=== PATIENT | female | born 1960 | race Caucasian/White ===

== ENCOUNTER 2019-12-05 11:25 | Outpatient (CLI) | payer OTHER, SELFPAY ==
--- NOTE | ~2019-12-05 | MM_ITS ---
EXAMINATION: MM screening aristides RT w lani HISTORY: Screening mammogram TECHNIQUE: Craniocaudal and mediolateral oblique 3-D tomosynthesis images were obtained and synthetic 2-D images were generated. CAD analysis was submitted and interpreted. COMPARISON: 04/14/2018, 12/10/2015 BREAST PARENCHYMAL COMPOSITION: The breast is heterogeneously dense, which may obscure small masses. FINDINGS: An intramammary lymph node is noted in the upper outer quadrant of the breast. There is no evidence of suspicious mass, calcification, or architectural distortion to suggest malignancy in eith er breast. There has been no suspicious interval change. IMPRESSION: 1. No mammographic evidence of malignancy. 2. Recommend routine screening mammography in one year. BI-RADS Category 2: Benign finding(s). Reviewed, dictated and finalized at location A.
== END 2019-12-05 11:26 | disposition home or self-care (01) ==
LOC: ANHIMG 11:29
PROVIDERS: Visit Provider Obstetrics & Gynecology
DX: Z12.31 Encounter for screening mammogram for malignant neoplasm of breast (principal)
CPT/HCPCS: 77063; 77067

== ENCOUNTER 2022-02-21 16:17 | Emergency (ER) | payer OTHER, SELFPAY ==
--- NOTE | ~2022-02-21 | XR_ITS ---
EXAMINATION: XR chest 1V portable 02/21/2022 17:27 INDICATION: Shortness of breath and cough. Previous Covid infection. PROCEDURE: AP portable chest COMPARISON: No prior studies for comparison. FINDINGS: The lungs are clear. The cardiomediastinal silhouette is within normal limits. There are no pleural effusions. There is no pneumothorax suspected. IMPRESSION: 1: NO ACUTE CARDIOPULMONARY DISEASE. Reviewed, dictated and finalized at location A.
[2022-02-21 16:20] VITALS: BP 181/83; PULSE 86; RESP 18; TEMP 36.9; O2SAT 98
--- NOTE | 2022-02-21 16:50 | ED.URI ---
HPI - URI/Sore Throat General Chief Complaint: Upper Respiratory Infection <RAINA Bauer Last Filed: 02/21/22 18:25> Stated Complaint: covid positive <RAINA Bauer Last Filed: 02/21/22 18:25> Time Seen by Provider: 02/21/22 16:30 <RAINA Bauer Last Filed: 02/21/22 18:25> History of Present Illness HPI Narrative: Patient is a 61-year-old female here for evaluation of sore throat, cough, fatigue for the past 2 weeks. Patient tested positive for COVID 2 weeks ago and received antibody infusion about 10 days ago. Her symptoms improved initially, but they returned yesterday. Reports productive cough of clear sputum, very mild shortness of breath, congestion, sore throat, intermittent fevers, and generalized fatigue. Trying Robitussin and vitamins for her symptoms without relief. No chest pain, leg swelling. She is not vaccinated against COVID or flu. <RAINA Bauer Last Filed: 02/21/22 18:25> Related Data Allergies/Adverse Reactions: Allergies Allergy/AdvReac Type Severity Reaction Status Date / Time ciprofloxacin [From Cipro] Allergy Hives Verified 02/21/22 16:25 codeine Allergy Hives Verified 02/21/22 16:25 Sulfa (Sulfonamide Allergy Hives Verified 02/21/22 16:25 Antibiotics) <RAINA Bauer Last Filed: 02/21/22 18:25> Review of Systems Review of Systems: Gen.: Reports intermittent fevers Eyes: Denies eye pain or visual change ENT: Reports congestion and sore throat Respiratory: Reports cough and mild SOB CV: Denies chest pain or palpitations GI: Denies abdominal pain nausea, emesis or diarrhea denies burning, urgency, frequency or hematuria Musculoskeletal: Denies back pain or muscle pain Neuro: Denies numbness, tingling, weakness or focal weakness Skin: Denies rash Except as documented, all other systems reviewed and negative <RAINA Bauer Last Filed: 02/21/22 18:25> Exam Narrative: APPEARANCE: Well appearing, no pain in distress, well-nourished. Head normocephalic and atraumatic. EYES: PERRLA/EOMI, conjunctivae clear NOSE: No nasal drainage EARS: External ear normal in appearance THROAT: Posterior oropharynx is erythematous. Oropharynx is clear. NECK: Supple. No adenopathy, no masses. RESPIRATORY: Airway patent, respirations nonlabored. Clear to auscultation bilaterally, no rales, rhonchi, wheezing. CARDIOVASCULAR: Regular rate and rhythm without murmurs, rubs, or gallops. ABDOMINAL: Normoactive bowel sounds. Soft, nontender, nondistended. No rebound tenderness or guarding. MUSCULOSKELETAL: Extremities are warm and well-perfused. Moves all extremities well. No edema. NEURO: Normal speech. No focal neurologic deficits. SKIN: Skin is warm and dry. No rashes. PSYCHIATRIC: Normal affect/mood. <Samantha Dc PA-C - Last Filed: 02/21/22 18:25> Course DIRECTOR FINANCIAL PLANNING/PA Physician Supervision For this patient encounter, I reviewed the DIRECTOR FINANCIAL PLANNING or PA documentation, treatment plan, and medical decision making <Navneet Ramirez MD - Last Filed: 02/21/22 21:55> Vital Signs Vital signs: Vital Signs Temperature 98.4 F 02/21/22 16:20 Pulse Rate 86 02/21/22 16:20 Respiratory Rate 18 02/21/22 16:20 Blood Pressure 181/83 H 02/21/22 16:20 Pulse Oximetry 98 02/21/22 16:20 Oxygen Delivery Room Air 02/21/22 16:20 Temperature 98.4 F 02/21/22 16:20 Pulse Rate 86 02/21/22 16:20 Respiratory Rate 18 02/21/22 16:20 Blood Pressure 181/83 H 02/21/22 16:20 Pulse Oximetry 98 02/21/22 16:20 Oxygen Delivery Room Air 02/21/22 16:20 <Samantha Dc PA-C - Last Filed: 02/21/22 18:25> Vital Signs Temperature 98.4 F 02/21/22 16:20 Pulse Rate 86 02/21/22 16:20 Respiratory Rate 18 02/21/22 16:20 Blood Pressure 181/83 H 02/21/22 16:20 Pulse Oximetry 98 02/21/22 16:20 Oxygen Delivery Room Air 02/21/22 16:20 Temperat
== END 2022-02-21 18:07 | disposition home or self-care (01) ==
PROVIDERS: Emergency Provider Emergency Medicine; PCP Family Medicine
DX: J06.9 Acute upper respiratory infection, unspecified (principal); R03.0 Elevated blood-pressure reading, without diagnosis of hypertension; Z86.16 Personal history of COVID-19
CPT/HCPCS: 71045; 87081; 87804; 87880; 99283

== ENCOUNTER 2022-04-03 07:19 | Emergency (ER) | payer OTHER, SELFPAY ==
--- NOTE | ~2022-04-03 | XR_ITS ---
EXAMINATION: XR chest 1V portable DATE: 04/03/2022 08:12 INDICATION: Cough TECHNIQUE: frontal view of the chest was obtained. COMPARISON: Chest radiograph dated 02/21/2022 FINDINGS: The lungs remain clear with no focal airspace opacities, pulmonary edema, pleural effusion or pneumot horax. The cardiomediastinal silhouette is normal. Visualized bones and soft tissues are unremarkable . IMPRESSION: 1. No acute cardiopulmonary disease. Reviewed, dictated and finalized at location A.
[2022-04-03 07:23] VITALS: BP 151/73; PULSE 86; RESP 14; TEMP 36.2; O2SAT 98
[2022-04-03 07:38] VITALS: RESP 16; O2SAT 98
--- NOTE | 2022-04-03 08:02 | ED.GENADULT ---
HPI - General Adult General Chief complaint: Unspecified Stated complaint: cough x4 days, feel like I have pneumonia Time Seen by Provider: 04/03/22 07:48 History of Present Illness HPI narrative: 61-year-old female presents to the emergency department secondary to cough and congestion for the last 2 days. She got concerned when the sputum turned yellow. She is already had COVID twice this year once in September then again in January. She does not believe in the vaccination and therefore was not been vaccinated. She works over at [employer] and she is around many people every time she is at work. She has no nausea vomiting. No urinary complaints. Related Data Allergies Allergy/AdvReac Type Severity Reaction Status Date / Time ciprofloxacin [From Cipro] Allergy Hives Verified 04/03/22 07:44 codeine Allergy Hives Verified 04/03/22 07:44 Sulfa (Sulfonamide Allergy Hives Verified 04/03/22 07:44 Antibiotics) Review of Systems Review of Systems: CONSTITUTIONAL: Denies fever, chills, or sweats. EYES: Denies visual changes, redness, or discharge. ENT: Denies rhinorrhea, congestion, sore throat, or otalgia. CARDIOVASCULAR: Denies chest pain, palpitations, or edema. RESPIRATORY: Productive cough of yellowish sputum GASTROINTESTINAL: Denies abdominal pain, nausea, vomiting, or diarrhea. GENITOURINARY: Denies dysuria or hematuria. SKIN: Denies rash or itching. MUSCULOSKELETAL: Denies back pain, joint pain, or myalgia. NEUROLOGIC: Denies headache, numbness, or weakness. PSYCHIATRIC: Denies anxiety or depression. PMFSH Past Medical History Medical History COVID Social History Social History Smoking status: Smoker, status unknown Exam Narrative: APPEARANCE: Well appearing, no pain or distress, well-nourished. Head normocephalic and atraumatic. EYES: PERRLA/EOMI, conjunctivae very clear. NOSE: Normal with no drainage EARS:TMS clear Kelly Oconnor, with good light reflex. THROAT: Pharynx clear, no exudate. NECK: Supple. No adenopathy, no masses. RESPIRATORY: Airway patent, respirations nonlabored. Scattered coarse rhonchi but overall good aeration CARDIOVASCULAR: Regular rate and rhythm without murmurs, rubs, or gallops. ABDOMINAL: Soft, nontender, nondistended, no hepatosplenomegaly Musculoskeletal: Moves all extremities. Strength/ROM intact, No edema, No calf tenderness. NEURO: Alert. Cranial nerves II through XII intact. Normal gait. Good coordination. Nonfocal examination. SKIN:: Warm, dry. Normal Color PSYCHIATRIC: Normal affect/mood, normal interaction Course Vital Signs Vital signs: Vital Signs Temperature 97.2 F L 04/03/22 07:23 Pulse Rate 86 04/03/22 07:23 Respiratory Rate 14 04/03/22 07:23 Blood Pressure 151/73 H 04/03/22 07:23 Pulse Oximetry 98 04/03/22 07:23 Oxygen Delivery Room Air 04/03/22 07:23 Temperature 97.2 F L 04/03/22 07:23 Pulse Rate 86 04/03/22 07:23 Respiratory Rate 16 04/03/22 07:38 Blood Pressure 151/73 H 04/03/22 07:23 Pulse Oximetry 98 04/03/22 07:38 Oxygen Delivery Room Air 04/03/22 07:23 Medical Decision Making MDM Narrative Medical decision making narrative: Chest x-ray is negative for any infiltrative pattern. COVID test was negative. Patient's presentation consistent with purulent bronchitis with yellow to green sputum. We will place her on a Z-Michael. This was all explained to the patient and she is in agreement. Vital Signs Vital Signs: Vital Signs Temperature 97.2 F L 04/03/22 07:23 Pulse Rate 86 04/03/22 07:23 Respiratory Rate 14 04/03/22 07:23 Blood Pressure 151/73 H 04/03/22 07:23 Pulse Oximetry 98 04/03/22 07:23 Oxygen Delivery Room Air 04/03/22 07:23 Temperature 97.2 F L 04/03/22 07:23 Pulse Rate 86 04/03/22 07:23 Respiratory Rate 16 04/03/22 07:38 Blood Pressure 151/73 H 04/03/22 07:23
[2022-04-03 09:06] LABS: SARS-CoV-2 RNA PCR Negative
[2022-04-03 09:34] VITALS: BP 134/82; PULSE 76; RESP 18; O2SAT 97
== END 2022-04-03 09:30 | disposition home or self-care (01) ==
PROVIDERS: Emergency Provider Emergency Medicine; PCP Family Medicine
DX: J20.9 Acute bronchitis, unspecified (principal); Z20.822 Contact with and (suspected) exposure to COVID-19; Z86.16 Personal history of COVID-19; Z28.310 Unvaccinated for COVID-19
CPT/HCPCS: 71045; 99283; C9803; U0003; U0005

== ENCOUNTER 2022-06-16 18:40 | Emergency (ER) | payer OTHER, SELFPAY ==
[2022-06-16 18:47] VITALS: BP 144/68; PULSE 87; RESP 18; TEMP 36.4; O2SAT 98
[2022-06-16 19:35] LABS: SARS-CoV-2 RNA PCR Negative
--- NOTE | 2022-06-16 20:08 | ED.GENADULT ---
HPI - General Adult General Chief complaint: Headache Stated complaint: headache, diarrhea, bodyaches Time Seen by Provider: 06/16/22 19:52 Source: patient and RN notes reviewed Mode of arrival: ambulatory Limitations: no limitations History of Present Illness HPI narrative: This is a 62 year old female who presents for evaluation of possible covid infection. Patient states she worked baseball game on Tuesday and she developed symptoms concerning for covid yesterday. She developed watery, nonbloody diarrhea yesterday with body aches, mild cough, headache. Her diarrhea has improved. She reports having epigastric abdominal pain that was intermittent and it has currently resolved. She denies nausea or vomiting. She reports throbbing headache that was severe like when she had covid in the past. She has taken ibuprofen and tylenol for her pain. She states her head is improving. She just wanted to be tested for covid Related Data Allergies Allergy/AdvReac Type Severity Reaction Status Date / Time ciprofloxacin [From Cipro] Allergy Hives Verified 04/03/22 07:44 codeine Allergy Hives Verified 04/03/22 07:44 Sulfa (Sulfonamide Allergy Hives Verified 04/03/22 07:44 Antibiotics) Review of Systems Review of Systems: All systems reviewed & are unremarkable except as noted in HPI and below Constitutional: Constitutional: Denies chills, Reports fatigue and Denies fever(s) ENT: Denies epistaxis and Reports nasal congestion Cardiovascular: Cardiovascular: Denies chest pain Respiratory: Respiratory: Reports cough and Denies dyspnea Gastrointestinal: Gastrointestinal: Reports abdominal pain, Reports diarrhea and Denies vomiting Neurologic: Denies syncope and Reports headache(s) PMFSH Past Medical History Medical History COVID Social History Social History (Updated 06/16/22 @ 20:11 by Devika Mccarthy MD) Smoking packs per day: 0.5 Smoking cigarettes per day: 10.0 Smoking status: Current every day smoker Exam Narrative: GENERAL: Well-appearing, well-nourished, and in no acute distress. HEAD: Normocephalic, atraumatic EYES: PERRLA and EOMI, conjunctiva clear without discharge EARS: TM's clear bilaterally without erythema or dullness NOSE: Nares clear, no rhinorrhea or epistaxis THROAT:Mucous membranes moist, Oropharynx normal without erythema, exudate, peritonsillar swelling or fluctuance NECK: Supple, without lymphadenopathy or mass RESPIRATORY: No respiratory distress, Airway patent, Respirations non-labored, Clear to auscultation without rales, rhonchi or wheeze HEART: Regular rate and rhythm. No murmur heard. Normal peripheral pulses. ABDOMEN: Soft, nontender, nondistended, normal active bowel sounds. No masses. No rebound or guarding, No organomegaly. EXTREMITIES: No edema, normal strength with full range of motion. SKIN: Warm, dry, normal color without rash NEURO: Alert and oriented x3. CN 2-12 grossly intact. No focal deficits. PSYCH: Normal mood and affect. Course Reevaluation(s) Reevaluation #1: I Discussed with patient that her covid is negative but she may have another virus such as influenza. I recommended tested but she declines. I Discussed if she is found to have flu she can be started on tamiflu and she still declines. I offered IVF to help with dehydration and headache. She states she feels fine and she wants to go home. Date: 06/16/22 Time: 20:15 Vital Signs Vital signs: Vital Signs Temperature 97.6 F 06/16/22 18:47 Pulse Rate 87 06/16/22 18:47 Respiratory Rate 18 06/16/22 18:47 Blood Pressure 144/68 H 06/16/22 18:47 Pulse Oximetry 98 06/16/22 18:47 Oxygen Delivery Room Air 06/16/22 18:47 Temperature 97.6 F 06/16/22 18:47 Pulse Rate 87 06/16/22 18:47 Respiratory Rate 18 06/16/22 18:47 Blood Pressure 144/68 H 06/16/22 18:47 Pulse Oximetry 98 06/16/22 18:47 Oxygen Delivery Keisha
== END 2022-06-16 20:22 | disposition home or self-care (01) ==
PROVIDERS: Emergency Medicine; Emergency Provider General Practice; PCP Family Medicine
DX: B34.9 Viral infection, unspecified (principal); Z20.822 Contact with and (suspected) exposure to COVID-19; Z86.16 Personal history of COVID-19; F17.210 Nicotine dependence, cigarettes, uncomplicated
CPT/HCPCS: 99283; C9803; U0003; U0005

== ENCOUNTER 2022-08-22 09:11 | Emergency (ER) | payer OTHER, SELFPAY ==
--- NOTE | ~2022-08-22 | XR_ITS ---
XR foot LT min 3V DATE: 08/22/2022 09:55 INDICATION: Second metatarsophalangeal area pain. No known injury. TECHNIQUE: 4 views COMPARISON: None FINDINGS: Mild hallux valgus and bunion deformity. Slight posterior mild plantar calcaneal enthesopathy. No fracture or dislocation, periosteal reaction or bone destruction. IMPRESSION: Mild ascites and bunion deformity Calcaneal enthesopathy Reviewed, dictated and finalized at location A. A INTERN
--- NOTE | ~2022-08-22 | XR_ITS ---
XR knee LT 3V DATE: 08/22/2022 09:55 INDICATION: Swelling and pain. No known injury. TECHNIQUE: 3 views COMPARISON: None FINDINGS: There is slight periarticular spurring of the patella mild osteoarthritis. There is slight periarticular spurring of the medial tibial plateau. Joint spaces are preserved. No radiopaque intra- articular loose body or chondrocalcinosis. No fracture or dislocation, periosteal reaction or bone de struction or any significant joint effusion is evident. IMPRESSION: Very mild osteoarthritis Reviewed, dictated and finalized at location A. RAM MANAGER RN IMPRESSION: Very mild osteoarthritis
--- NOTE | ~2022-08-22 | US_ITS ---
US venous doppler LE DATE: 08/22/2022 10:59 INDICATION: Left knee pain, swelling TECHNIQUE: Real-time and color flow imaging and Doppler analysis COMPARISON: 08/22/2022 left knee FINDINGS: The greater saphenous vein is patent. There is spontaneous and phasic flow and normal augme ntation and color flow signal and normal compression of the deep veins of the left lower extremity. There is an approximately 5.4 x 1.4 x 4.3 cm popliteal cyst. IMPRESSION: No evidence of deep venous thrombosis of left lower extremity Left popliteal cyst Reviewed, dictated and finalized at Location A. Reviewed, dictated and finalized at location A. ENT MENDER
[2022-08-22 09:20] VITALS: BP 153/66; PULSE 90; RESP 16; TEMP 36.9; O2SAT 97
[2022-08-22] MEDS: NAPROXEN 375 MG TABLET PO (11:00)
--- NOTE | 2022-08-22 11:54 | ED.EXTPRO ---
HPI - Extremity Problem General Chief complaint: Extremity Problem,Nontraumatic Stated complaint: L. knee swelling, neck pain Time Seen by Provider: 08/22/22 09:39 History of Present Illness HPI Narrative: Patient is a 62-year-old female who presents ER with left lower extremity pain. Patient has history of DVT and is concerned she may have another one. She woke up this morning and she has some swelling to her left knee she also has pain at her second MTP when she tries to stand up and roll on her foot. No fevers or still chills or sweats. No recent trauma. The knee is without any redness or warmth. Patient is also reporting some achiness to the left neck. She has not taken any pain medication. She has no numbness or tingling in arms or legs. Related Data Allergies Allergy/AdvReac Type Severity Reaction Status Date / Time ciprofloxacin [From Cipro] Allergy Hives Verified 04/03/22 07:44 codeine Allergy Hives Verified 04/03/22 07:44 Sulfa (Sulfonamide Allergy Hives Verified 04/03/22 07:44 Antibiotics) Review of Systems Review of Systems: All systems reviewed & are unremarkable except as noted in HPI and below Constitutional: Constitutional: Denies chills and Denies fever(s) ENT: Denies nasal congestion and Denies sore throat Cardiovascular: Cardiovascular: Denies chest pain, Denies rapid heart rate and Denies radiating jaw, neck or arm pain Respiratory: Respiratory: Denies cough and Denies dyspnea Musculoskeletal: Musculoskeletal: Reports arthralgias and Reports joint swelling Comments: Left neck pain Neurologic: Denies syncope, Denies headache(s), Denies focal weakness and Denies numbness Psychiatric: Psychiatric: Reports anxiety PMFSH Past Medical History Medical History (Updated 08/22/22 @ 12:19 by Hector Mendoza MD) COVID DVT (deep venous thrombosis) Social History Social History (Updated 06/16/22 @ 20:11 by Devika Mccarthy MD) Smoking packs per day: 0.5 Smoking cigarettes per day: 10.0 Smoking status: Current every day smoker Exam Narrative: GENERAL: Well-appearing, well-nourished, and in no acute distress. HEAD: Normocephalic, atraumatic. Neck: Supple, normal range of motion, no midline tenderness, mild left paraspinal muscular tenderness C5 level. CHEST: Clear to auscultation. No respiratory distress. HEART: Regular rate and rhythm. Normal peripheral pulses. ABDOMEN: Soft, nontender, nondistended. EXTREMITIES: Normal range of motion. No edema. Left knee with effusion but no tenderness, normal range of motion and strength. Mild tenderness at the second MTP on the left side without redness or swelling. SKIN: Warm, dry, no rash. NEURO: Alert and oriented x3. PSYCH: Normal mood and affect. Course Course Emergency Course: Patient informed of results. Given naproxen for discomfort, symptoms may be related to popliteal cyst. Patient able to ambulate. Discussed return precautions. Discharge home. Vital Signs Vital signs: Vital Signs Temperature 98.4 F 08/22/22 09:20 Pulse Rate 90 08/22/22 09:20 Respiratory Rate 16 08/22/22 09:20 Blood Pressure 153/66 H 08/22/22 09:20 Pulse Oximetry 97 08/22/22 09:20 Temperature 98.4 F 08/22/22 09:20 Pulse Rate 90 08/22/22 09:20 Respiratory Rate 16 08/22/22 09:20 Blood Pressure 153/66 H 08/22/22 09:20 Pulse Oximetry 97 08/22/22 09:20 MDM - Extremity (Nontraumatic) Imaging Data Radiologist's impression: ITS Impressions Knee X-Ray 08/22/22 10:41 IMPRESSION: Very mild osteoarthritis Foot X-Ray 08/22/22 10:42 IMPRESSION: Mild ascites and bunion deformity Calcaneal enthesopathy Venous Doppler Study 08/22/22 11:22 IMPRESSION: No evidence of deep venous thrombosis of left lower extremity Left popliteal cyst Discharge Plan Discharge Clinical Impression: Popliteal cyst Patient Disposition: Home, Self-Care Condition: Stable Instructions:
== END 2022-08-22 12:44 | disposition home or self-care (01) ==
PROVIDERS: Emergency Provider Emergency Medicine; PCP Family Medicine
DX: M71.22 Synovial cyst of popliteal space [Baker], left knee (principal); Z86.718 Personal history of other venous thrombosis and embolism; Z86.16 Personal history of COVID-19; M21.612 Bunion of left foot; M20.12 Hallux valgus (acquired), left foot; M77.32 Calcaneal spur, left foot; M17.12 Unilateral primary osteoarthritis, left knee
CPT/HCPCS: 73562; 73630; 93971; 99284; A9270

== ENCOUNTER 2022-09-12 15:32 | Emergency (ER) | payer OTHER, SELFPAY ==
[2022-09-12] VITALS (7 sets, daily range): BP systolic 150–155; BP diastolic 77–95; PULSE 76–100; RESP 13–25; TEMP 36.8; O2SAT 97–99
--- NOTE | ~2022-09-12 | XR_ITS ---
EXAMINATION: XR chest 2V DATE: 09/12/2022 16:39 INDICATION: Mid chest pain TECHNIQUE: PA and lateral views of the chest were obtained. COMPARISON: Chest radiograph dated 04/03/22 FINDINGS: The lungs remain clear with no focal airspace opacities, pulmonary edema, pleural effusion or pneumot horax. The cardiomediastinal silhouette is normal. Mild to moderate thoracic spondylosis. IMPRESSION: 1. No acute cardiopulmonary disease. Reviewed, dictated and finalized at location A. ER FALLER
--- NOTE | 2022-09-12 15:45 | ECG_ITS ---
Measurements Intervals [place] Rate: 104 P: 69 MN: 150 QRS: 53 QRSD: 82 T: 46 QT: 312 QTc: 412 Interpretive Statements SINUS TACHYCARDIA POSSIBLE LEFT ATRIAL ENLARGEMENT [-0.1mV P WAVE IN V1/V2] ABNORMAL RHYTHM ECG NO PREVIOUS ECG AVAILABLE FOR COMPARISON Electronically Signed On 09-12-2022 22:09:00 PIPING ENGINEER by Maxine Sheehan M.D.
[2022-09-12 16:29] LABS: Basophils Absolute Auto 0.1 K/mm3 (0.0-0.1); Basophils Percent Auto 0.6 % (0.2-1.2); Eosinophils Percent Auto 0.5 % (0-4.4); Hematocrit 41.6 % (37.0-47.0); Hemoglobin 14.7 g/dL (12.0-15.0); Immature Granulocyte Absolute 0.02 K/mm3 (0.00-0.031); Immature Granulocyte Percent A 0.2 % (0-0.5); Lymphocytes Absolute Auto 2.71 K/mm3 (0.9-3.2); Mean Corpuscular HGB Conc 35.3 g/dl (32-36); Mean Corpuscular Hemoglobin 34.1 pg (26-34); Mean Corpuscular Volume 96.5 fl (80-100); Mean Platelet Volume 8.7 fl (7.4-10.4); Monocytes Absolute Auto 0.6 K/mm3 (0.1-0.6); Monocytes Percent Auto 7.2 % (2.6-8.5); Neutrophils Absolute Auto 4.8 K/mm3 (1.3-6.7); Neutrophils Percent Auto 58.5 % (45.5-73.1); Platelet Count Result 303 k/mm3 (150-375); Red Blood Count 4.31 M/mm3 (4.2-5.4); Red Cell Distribution Width 13.1 % (11.5-14.5); White Blood Count 8.2 K/mm3 (4.5-10.0)
[2022-09-12 16:32] LABS: Prothrombin Time 12.8 Seconds (11.1-14.7)
[2022-09-12 16:33] LABS: Partial Thromboplastin Time 27.9 SECONDS (22.3-36.8)
[2022-09-12 16:41] LABS: Alanine Aminotransferase 42 U/L (6-35); Albumin Level 4.2 g/dL (3.5-5.1); Alkaline Phosphatase 128 U/L (38-126); Anion Gap 7 mmol/L (8-16); Aspartate Amino Transferase 55 U/L (14-36); Bilirubin,Total 0.8 mg/dL (0.2-1.3); Blood Urea Nitrogen 13 mg/dL (7-17); Calcium 8.4 mg/dL (8.4-10.2); Carbon Dioxide 24 mmol/L (22-30); Chloride 101 mmol/L (98-107); Estimated CRCL calculation 55 ml/min; Estimated Glomerular Filt Rate > 60; Glucose 111 mg/dL (65-110); Lipase 182 U/L (23-300); Potassium 3.6 mmol/L (3.4-5.0); Sodium 132 mmol/L (137-145)
[2022-09-12 16:51] LABS: Troponin I < 0.012 ng/mL (0.000-0.034)
[2022-09-12 19:36] LABS: Troponin I < 0.012 ng/mL (0.000-0.034)
[2022-09-12 21:41] LABS: Influenza A QL RT-PCR Negative (Negative); Influenza B QL RT-PCR Negative (Negative); SARS-CoV-2 RNA PCR Negative
--- NOTE | 2022-09-12 22:09 | ED.GENADULT ---
HPI - General Adult General Chief complaint: Chest Pain Stated complaint: CP Time Seen by Provider: 09/12/22 20:39 Source: patient Mode of arrival: ambulatory Limitations: no limitations History of Present Illness HPI narrative: Patient is a 62-year-old female who presents the ED with multiple complaints. Patient reports she woke up this morning with a sore throat. She has also had intermittent chest pressure throughout today, in addition to dizziness and increased anxiety. Patient does report something happened recently that has caused her depression and anxiety to worsen. Denies SI or HI. Patient states she had COVID-19 twice this year and has never been the same since. She has had a persistent cough since her first round of COVID in September. She is not vaccinated for COVID or influenza. She denies any fever, nausea, vomiting, difficulty breathing, abdominal pain, congestion. Patient denies a history or family history of coronary disease. She states she saw a gang punch operator once and he wanted to put her on medication for hypertension and hyperlipidemia, however she has never taken these medicines. Patient does have a history of anxiety and has intermittently been prescribed Ativan by her primary care doctor. She does not have any currently and is requesting a dose in the ED. Related Data Allergies Allergy/AdvReac Type Severity Reaction Status Date / Time ciprofloxacin [From Cipro] Allergy Hives Verified 09/12/22 15:44 codeine Allergy Hives Verified 09/12/22 15:44 Sulfa (Sulfonamide Allergy Hives Verified 09/12/22 15:44 Antibiotics) Review of Systems Review of Systems: CONSTITUTIONAL: Denies fever, chills, or sweats. EYES: Denies visual changes. ENT: Reports sore throat. Denies rhinorrhea, congestion. CARDIOVASCULAR: Reports chest pressure. Denies palpitations, or edema. RESPIRATORY: Reports chronic cough. Denies dyspnea. GASTROINTESTINAL: Denies abdominal pain, nausea, vomiting, or diarrhea. NEUROLOGIC: Reports dizziness. Denies headache, numbness, or weakness. PSYCHIATRIC: Reports anxiety and depression. Denies SI/HI. All systems reviewed & are unremarkable except as noted in HPI and below PMFSH Past Medical History Medical History Anxiety COVID DVT (deep venous thrombosis) Surgical History Surgical History No pertinent past surgical history Social History Social History (Updated 09/13/22 @ 03:34 by Corinna Flynn PA-C) Smoking packs per day: 0.5 Smoking cigarettes per day: 10.0 Smoking status: Current every day smoker Alcohol intake: current Exam Narrative: GENERAL: Well appearing, well-nourished, non-toxic, in no acute distress. HEAD: Normocephalic, atraumatic. ENT: Mild erythema to posterior pharynx, no tonsillar hypertrophy or exudate. Uvula midline. NECK: Supple. No adenopathy, no masses. RESPIRATORY: Airway patent, respirations nonlabored. Clear to auscultation bilaterally, no rales, rhonchi, wheezing. CARDIOVASCULAR: Regular rate and rhythm without murmurs, rubs, or gallops. Radial pulses 2+ and equal bilaterally. ABDOMINAL: Soft, nontender, nondistended, no hepatosplenomegaly. Normoactive BS. MUSCULOSKELETAL: Moves all extremities. Strength/ROM intact without gross deformities. SKIN: Warm, dry, normal color. No rashes. NEURO: A&O X3. Speech clear. Cranial nerves II-XII grossly intact. Steady gait. No ataxic movements. PSYCHIATRIC: Anxious, tearful. Normal interaction. Course Vital Signs Vital signs: Vital Signs Temperature 98.3 F 09/12/22 15:42 Pulse Rate 100 09/12/22 15:42 Respiratory Rate 18 09/12/22 15:42 Blood Pressure 150/95 H 09/12/22 15:42 Pulse Oximetry 98 09/12/22 15:42 Temperature 98.3 F 09/12/22 15:42 Pulse Rate 93 09/12/22 21:17 Respiratory Rate 25 H 09/12/22 21:17 Blood Pressure 153/80 H 09/12/22 21:17 Pulse O
== END 2022-09-12 22:45 | disposition left against medical advice (07) ==
LOC: ANHED 19:26
PROVIDERS: Emergency Medicine; Emergency Provider Physician Assistant; PCP Family Medicine
DX: F41.9 Anxiety disorder, unspecified (principal); R07.89 Other chest pain; J02.9 Acute pharyngitis, unspecified; F17.210 Nicotine dependence, cigarettes, uncomplicated; Z86.718 Personal history of other venous thrombosis and embolism; Z20.822 Contact with and (suspected) exposure to COVID-19
CPT/HCPCS: 36415; 71046; 80053; 83690; 84484; 85025; 85610; 85730; 87636; 93005; 99284